=== PATIENT | male | born 1960 | race Two or more races ===

== ENCOUNTER 2019-06-24 11:00 | Outpatient (CLI) | payer MEDICAID ==
--- NOTE | 2019-06-24 16:00 | XRAY Report ---
Reason: RIB SHOULDER PAIN, RT SIDE, ABD AND NECK PAIN Procedure Date: 06/24/2019 Accession Number: [id number] / [id number] Procedure: XR - Cervical Spine 2 View CPT Code: Final Report FULL RESULT: EXAM: CERVICAL SPINE RADIOGRAPHY EXAM DATE: 06/24/2019 11:40 AM. CLINICAL HISTORY: Rib and shoulder pain, right side, abdominal and neck pain. COMPARISONS: None. TECHNIQUE: 3 views. Frontal, odontoid, lateral. FINDINGS: Alignment: Normal. No spondylolisthesis or scoliosis. Bones: The cervical vertebral bodies and posterior elements are well visualized from the skull base through C7-T1. No fractures or bone lesions. Disks: Normal. Disk heights are maintained. Facets: No significant degenerative disease. Soft Tissues: Normal. No prevertebral soft tissue swelling. The visualized lung apices are clear. IMPRESSION: 1. Unremarkable cervical spine radiography. [facility]
--- NOTE | 2019-06-25 00:31 | XRAY Report ---
Reason: RIB SHOULDER PAIN, RT SIDE, ABD AND NECK PAIN Procedure Date: 06/24/2019 Accession Number: [id number] / [id number] Procedure: XR - Shoulder 3 View RT CPT Code: Final Report FULL RESULT: EXAM: RIGHT SHOULDER RADIOGRAPHY EXAM DATE: 06/24/2019 11:40 AM. CLINICAL HISTORY: RIB SHOULDER PAIN, RT SIDE, ABD AND NECK PAIN. COMPARISON: None. TECHNIQUE: 3 views. FINDINGS: Bones: Normal. No fracture or bone lesion. Type II acromion. Joints: Mild undersurface spurring at the acromioclavicular joint. The glenohumeral joint appears normal. No dislocations. Soft tissues: The visualized hemithorax is unremarkable. No soft tissue swelling. IMPRESSION: Mild AC arthropathy. No fractures or dislocations. [facility]
--- NOTE | 2019-06-25 00:32 | XRAY Report ---
Reason: RIB SHOULDER PAIN, RT SIDE, ABD AND NECK PAIN Procedure Date: 06/24/2019 Accession Number: [id number] / [id number] Procedure: XR - Ribs 2 View RT CPT Code: Final Report FULL RESULT: EXAM: RIGHT RIB RADIOGRAPHY EXAM DATE: 06/24/2019 11:40 AM. CLINICAL HISTORY: RIB SHOULDER PAIN, RT SIDE, ABD AND NECK PAIN. COMPARISON: None. TECHNIQUE: 3 views of the right chest. FINDINGS: Bones: Normal. No fracture or bone lesion. Lungs: No focal opacities evident. No pneumothorax or pleural effusions. Mediastinum: Heart and cardiomediastinal contours are unremarkable. Other: None. IMPRESSION: Normal right rib radiography. [facility]
--- NOTE | 2019-06-25 00:33 | XRAY Report ---
Reason: RIB SHOULDER PAIN, RT SIDE, ABD AND NECK PAIN Procedure Date: 06/24/2019 Accession Number: [id number] / [id number] Procedure: XR - Abdomen 2 View X-Ray CPT Code: 82775 Final Report FULL RESULT: EXAM: ABDOMEN RADIOGRAPHY EXAM DATE: 06/24/2019 11:40 AM. CLINICAL HISTORY: RIB SHOULDER PAIN, RT SIDE, ABD AND NECK PAIN. COMPARISON: None. TECHNIQUE: 3 views. FINDINGS: Lung Bases: Unremarkable. Bowel Gas Pattern: Within normal limits. No dilated loops or abnormal fluid levels. Free Air: None. Other: Moderate facet disease at L4-L5. No acute bony abnormality.. IMPRESSION: Normal abdomen radiographs. [facility]
== END 2019-06-24 11:01 | disposition home or self-care (01) ==
LOC: DI 11:00
PROVIDERS: ATTEND Family Medicine
DX: R07.81 Pleurodynia (principal); M54.2 Cervicalgia; R10.11 Right upper quadrant pain; M19.011 Primary osteoarthritis, right shoulder
CPT/HCPCS: 72040; 74019

== ENCOUNTER 2019-10-03 10:55 | Outpatient (CLI) | payer MEDICAID ==
--- NOTE | 2019-10-03 11:42 | XRAY Report ---
Reason: CHRONIC PAIN OF BILAT KNEES Procedure Date: 10/03/2019 Accession Number: [id number] / [id number] Procedure: XR - Knee 3 View BILAT CPT Code: Final Report FULL RESULT: PROCEDURE: Knee 3 View BILAT INDICATIONS: CHRONIC PAIN OF BILAT KNEES TECHNIQUE: 3 views of the bilateral knee(s) were acquired. COMPARISON: None. FINDINGS: Bones: No fractures or dislocations. No suspicious bony lesions. Modreate bilateral medial compartment narrowing. No erosions. Mild to moderate left and moderate right patellofemoral effusions.Minimal periarticular osteophytes. Soft tissues: Mild bilateral joint effusions. No suspicious soft tissue calcifications. IMPRESSION: Bilateral medial and patellofemoral narrowing. Reviewed by: Crystal Auguste MD on 10/03/2019 11:38 AM PDT Approved by: Crystal Auguste MD on 10/03/2019 11:38 AM PDT Station ID: [id number]
== END 2019-10-03 10:56 | disposition home or self-care (01) ==
LOC: DI 10:55
PROVIDERS: ATTEND Family Medicine
DX: M25.862 Other specified joint disorders, left knee (principal); M25.861 Other specified joint disorders, right knee; G89.29 Other chronic pain